=== PATIENT | male | born 1930 | race Caucasian/White ===

== ENCOUNTER 2017-12-07 16:00 | Observation (INO) | payer OTHER ==
[~2017-12-07] VITALS: Ht 180.3 cm; Wt 74.1 kg
[2017-12-07 16:49] LABS: HEMATOCRIT 40.8 % (38.0-50.0); HEMOGLOBIN 14.2 G/DL (12.5-16.6); MCH 32.5 PG (29.0-34.0); MCHC 34.8 G/DL (30.0-36.0); MCV 93.4 FL (86-99); PLATELET COUNT 194 K/uL (156-360); RBC DIS.WIDTH-CV 12.2 % (11.8-14.6); RBC DIS.WIDTH-SD 42.4 % (39-53); RED BLOOD COUNT 4.37 M/uL (4.00-5.50)
[2017-12-07 17:01] LABS: CHLORIDE 102 mEq/L (99-109); POTASSIUM 4.8 mEq/L (3.7-5.4); SODIUM 139 mEq/L (136-147)
[2017-12-07 17:02] LABS: GLUCOSE 130 mg/dL (70-99)
[2017-12-07 17:06] LABS: CREATININE 1.4 mg/dL (0.6-1.3); GFR ESTIMATE (CALCULATED) 51 mL/min/ (58.99-99999)
[2017-12-07 17:07] LABS: UREA NITROGEN (BUN) 26 mg/dL (9-23)
[2017-12-07 17:14] LABS: TROP-I INTERPRETATION NEGATIVE; TROPONIN-I 0.02 ng/mL (0.0-0.30)
[2017-12-07 18:41] LABS: APPEARANCE CLEAR ((CLEAR)); BILIRUBIN NEGATIVE; BLOOD NEGATIVE; COLOR YELLOW ((YELLOW)); GLUCOSE (STRIP) NEGATIVE; KETONES 5; LEUKOCYTES NEGATIVE; NITRITE NEGATIVE; PROTEIN (STRIP) 30; SPECIFIC GRAVITY 1.016 (1.000-1.030); UCUL ADDED? NO; UROBILINOGEN 0.2 MG/DL (0.2-1.0)
[2017-12-07] MEDS ORDERED: GLIMEPIRIDE2 MG PO (18:58)
[2017-12-07] MEDS ORDERED: PANTOPRAZOLE SO40 MG PO (18:58)
[2017-12-07] MEDS ORDERED: SIMVASTATIN20 MG PO (18:59)
[2017-12-07] MEDS ORDERED: LO-DOSE ASPIRIN81 M2 PO (18:59)
[2017-12-07 23:13] LABS: HDL CHOLESTEROL 45 MG/DL (Desirable>=40); LDL CHOLESTEROL 121 mg/dL (Desirable<100); NON-HDL CHOLESTEROL 138 mg/dL (Desirable<160); TOTAL CHOLESTEROL 183 mg/dL (Desirable<200); TRIGLYCERIDES 85 MG/DL (Normal: <150)
[2017-12-07 23:39] VITALS: BP 181/74
[2017-12-08 05:18] VITALS: BP 137/59
[2017-12-08 09:00] VITALS: BP 177/74
[2017-12-08 09:30] LABS: HEMOGLOBIN A1c (GLYCOHEMOGLOB) 6.7 % (Below 5.7)
[2017-12-08] MEDS ORDERED: ANTIVERT25 MG PO (10:55)
[2017-12-08] MEDS ORDERED: PRAVACHOL10 MG PO (10:59)
[2017-12-08 11:06] VITALS: BP 130/60
[2017-12-08 11:11] LABS: CHLORIDE 102 MEQ/L (99-109); POTASSIUM 4.3 MEQ/L (3.7-5.4); SODIUM 137 MEQ/L (136-147)
[2017-12-08 11:17] LABS: CREATININE 1.2 MG/DL (0.6-1.3); GFR ESTIMATE (CALCULATED) > 59 mL/min/ (58.99-99999); GLUCOSE 159 mg/dL (70-99); UREA NITROGEN (BUN) 20 mg/dL (9-23)
== END 2017-12-08 12:41 | disposition home or self-care (01) ==
LOC: EME 16:00 → EDOF 21:40 → ENRESERV 21:44 → 5WEST 23:20 → ENPENDDIS 12-08 12:38 → 5WEST 12-08 12:41
PROVIDERS: Hospitalist; Internal Medicine; Physician Assistant
DX: G45.9 Transient cerebral ischemic attack, unspecified (principal); N17.9 Acute kidney failure, unspecified; E11.9 Type 2 diabetes mellitus without complications; E78.5 Hyperlipidemia, unspecified; I10 Essential (primary) hypertension; Z88.8 Allergy status to other drugs, medicaments and biological substances; R01.1 Cardiac murmur, unspecified; Z88.0 Allergy status to penicillin; Z79.82 Long term (current) use of aspirin; Z79.84 Long term (current) use of oral hypoglycemic drugs
CPT/HCPCS: 70450; 70551; 80048; 80061; 81003; 82948; 83036; 84484; 85027; 93005; 93880; 99281; 99285; G0378; G8978 GP CH; G8979 GP CH; G8980 GP CH; J1644; J7030